=== PATIENT | female | born 1960 | race Caucasian/White ===

== ENCOUNTER 2020-06-03 09:16 | Day surgery (SDC) | payer BC ==
[2020-06-03] MEDS ORDERED: Xylocaine 1% Vial 30 ML PF IJ ONE (09:17)
[2020-06-03] MEDS ORDERED: Decadron 4 MG INJ IV ONE (09:17)
[2020-06-03] MEDS ORDERED: DIPRIVAN 200 MG/20 ML IV ONE (10:31)
[2020-06-03] MEDS ORDERED: Ketamine HCl 50 MG/ML ONE (10:31)
--- NOTE | 2020-06-03 11:31 | XRAY ---
Indication: Bilateral piriformis muscle injections. Intraoperative fluoroscopy was provided for 20 seconds. 2 digital spot images submitted for interpretation demonstrates posterior needle tips projecting over the expected left and right piriformis muscles. Small amount of contrast injected for both needle tip placement. Correlate with intraoperative findings/report.
--- NOTE | 2020-06-03 11:41 | XRAY ---
20 seconds fluoroscopy time in surgery for bilateral piriformis muscle injections.
[2020-06-03] MEDS ORDERED: Lactated Ringers 1,000 ML IV ONE (15:48)
== END 2020-06-03 10:58 | disposition home or self-care (01) ==
LOC: SDC-PAIN 09:16
PROVIDERS: ATTEND Psychiatry & Neurology Pain Medicine
DX: M79.18 Myalgia, other site (principal); G47.30 Sleep apnea, unspecified; F41.8 Other specified anxiety disorders; K21.9 Gastro-esophageal reflux disease without esophagitis; H93.19 Tinnitus, unspecified ear; M19.90 Unspecified osteoarthritis, unspecified site; Z79.899 Other long term (current) drug therapy
CPT/HCPCS: 72202; 77002; J1100; J2001; J2704; Q9966

== ENCOUNTER 2020-07-08 12:55 | Day surgery (SDC) | payer BC ==
[2020-07-08] MEDS ORDERED: LIDOCAINE HCL 2% 100 MG/5 ML IJ ONE (12:56)
[2020-07-08] MEDS ORDERED: BUPIVACAINE 0.5% VIAL IJ ONE (12:56)
[2020-07-08] MEDS ORDERED: Depo-Medrol 40 MG/ML IM ONE ×2 (12:56)
[2020-07-08] MEDS ORDERED: Lactated Ringers 1,000 ML IV ONE (14:27)
[2020-07-08] MEDS ORDERED: DIPRIVAN 200 MG/20 ML IV ONE (14:54)
[2020-07-08] MEDS ORDERED: Ketamine HCl 50 MG/ML ONE (14:55)
--- NOTE | 2020-07-08 16:27 | XRAY ---
Indication: Right SI joint injection. Intraoperative fluoroscopy was provided for 20 seconds. 2 digital spot images submitted for interpretation demonstrates posterior needle tip projecting over the inferior right SI joint. Correlate with intraoperative findings/report.
--- NOTE | 2020-07-08 16:31 | XRAY ---
20 seconds of fluoroscopy was used in surgery for a right SI joint injection.
== END 2020-07-08 15:20 | disposition home or self-care (01) ==
LOC: SDC-PAIN 12:55
PROVIDERS: ATTEND Psychiatry & Neurology Pain Medicine
DX: M46.1 Sacroiliitis, not elsewhere classified (principal); M79.7 Fibromyalgia; F41.8 Other specified anxiety disorders; G47.30 Sleep apnea, unspecified; Z79.899 Other long term (current) drug therapy
CPT/HCPCS: 27096; 72020; 77002; J1030; J2704; G0260

== ENCOUNTER 2020-08-12 09:42 | Day surgery (SDC) | payer BC ==
[~2020-08-12 09:42] MED LIST: DIPRIVAN 200 MG/20 ML IV ONE; Ketamine HCl 50 MG/ML ONE
[2020-08-12] MEDS ORDERED: Depo-Medrol 40 MG/ML IM ONE (09:43)
[2020-08-12] MEDS ORDERED: BUPIVACAINE 0.5% VIAL IJ ONE (09:43)
[2020-08-12] MEDS ORDERED: Decadron 4 MG INJ IV ONE (09:43)
[2020-08-12] MEDS ORDERED: Xylocaine 1% Vial 30 ML PF IJ ONE (09:43)
[2020-08-12] MEDS ORDERED: Lactated Ringers 1,000 ML IV ONE (13:53)
--- NOTE | 2020-08-13 14:55 | XRAY ---
9 seconds fluoroscopy time in surgery for right piriformis muscle injection.
--- NOTE | 2020-08-13 15:05 | XRAY ---
11 seconds fluoroscopy time in surgery for hip injection.
--- NOTE | 2020-08-15 22:34 | XRAY ---
Indication: Right hip joint injection. Intraoperative fluoroscopy was provided for 11 seconds. A single digital spot image submitted for interpretation in the prone position demonstrates the needle tip to be projected over the lateral margin of the right femoral neck. A small amount of contrast has been injected for needle tip placement. Correlate with intraoperative findings/report.
--- NOTE | 2020-08-15 22:42 | XRAY ---
Indication: Right piriformis muscle injection. Intraoperative fluoroscopy was provided for 9 seconds. A single digital prone spot image submitted for interpretation demonstrates the posterior spinal needle tip within the right hemipelvis just inferior lateral to the projection of the sacroiliac joint. A small contrast was injected for needle placement in the right piriformis muscle. Correlate with intraoperative findings/report.
== END 2020-08-12 11:45 | disposition home or self-care (01) ==
LOC: SDC-PAIN 09:42
PROVIDERS: ATTEND Psychiatry & Neurology Pain Medicine
DX: M16.11 Unilateral primary osteoarthritis, right hip (principal); M60.9 Myositis, unspecified; M25.551 Pain in right hip; M79.7 Fibromyalgia; F41.8 Other specified anxiety disorders; G47.30 Sleep apnea, unspecified; K21.9 Gastro-esophageal reflux disease without esophagitis; H93.19 Tinnitus, unspecified ear; Z79.899 Other long term (current) drug therapy
CPT/HCPCS: 20552; 20610; 72020; 73501; 77002; J1030; J1100; J2001; J2704; Q9966

== ENCOUNTER 2020-09-23 12:54 | Day surgery (SDC) | payer BC ==
[2020-09-23] MEDS ORDERED: Depo-Medrol 40 MG/ML IM ONE (12:55)
[2020-09-23] MEDS ORDERED: LIDOCAINE HCL 2% 100 MG/5 ML IJ ONE (12:55)
[2020-09-23] MEDS ORDERED: DIPRIVAN 200 MG/20 ML IV ONE (14:44)
[2020-09-23] MEDS ORDERED: Ketamine HCl 50 MG/ML ONE (14:44)
--- NOTE | 2020-09-23 15:18 | XRAY ---
Indication: Bilateral L4-S1 MBB. Intraoperative fluoroscopy was provided for 19 seconds. Single digital spot image submitted for interpretation demonstrates posterior needle tips projecting over the expected left and right L4-S1 nerve roots. Correlate with intraoperative findings/report.
--- NOTE | 2020-09-23 15:22 | XRAY ---
19 seconds fluoroscopy time in surgery for bilateral L4-S1 MBB.
[2020-09-23] MEDS ORDERED: Lactated Ringers 1,000 ML IV ONE (16:51)
== END 2020-09-23 15:12 | disposition home or self-care (01) ==
LOC: SDC-PAIN 12:54
PROVIDERS: ATTEND Psychiatry & Neurology Pain Medicine
DX: M47.816 Spondylosis without myelopathy or radiculopathy, lumbar region (principal); K21.9 Gastro-esophageal reflux disease without esophagitis; G47.30 Sleep apnea, unspecified; M79.7 Fibromyalgia; F41.8 Other specified anxiety disorders; Z79.899 Other long term (current) drug therapy
CPT/HCPCS: 64493; 64494; 72020; 77002; J1030; J2704

== ENCOUNTER 2020-09-29 09:16 | Day surgery (SDC) | payer BC ==
[~2020-09-29 09:16] MED LIST changes: +BUPIVACAINE 0.5% VIAL IJ ONE; -DIPRIVAN 200 MG/20 ML IV ONE; -Ketamine HCl 50 MG/ML ONE; +Lactated Ringers 1,000 ML IV ONE; +XYLOCAINE 1% HCL 20 ML MDV ONE
[2020-09-29] MEDS ORDERED: CEFAZOLIN 2 GM-D5W BAG** 2 GM/50 ML ML IV ONE (09:41)
[2020-09-29] MEDS ORDERED: Lactated Ringers 1,000 ML IV ONE ×2 (09:41→15:06)
[2020-09-29] MEDS ORDERED: Lactated Ringers 1,000 ML IV SCH (10:00)
[2020-09-29] MEDS ORDERED: CEFAZOLIN 2 GM-D5W BAG** 2 GM/50 ML ML IV SCH (10:00)
[2020-09-29] MEDS ORDERED: DIPRIVAN 200 MG/20 ML IV ONE ×4 (14:15→16:19)
[2020-09-29] MEDS ORDERED: Versed 2 MG/2 ML Injection ONE (14:15)
[2020-09-29] MEDS ORDERED: SUBLIMAZE 100 MCG/2 ML ONE (14:15)
--- NOTE | 2020-09-29 16:32 | XRAY ---
38 seconds fluoroscopy time in surgery for right foot bunionectomy.
--- NOTE | 2020-09-29 16:32 | XRAY ---
Indication: Bunion repair. Intraoperative fluoroscopy provided for 51 seconds. 2 digital spot images of right foot submitted for interpretation demonstrates distal 1st metatarsal bunionectomy with 2 orthopedic screws in situ. Correlate with intraoperative findings/report.
[2020-09-29 17:15] VITALS: O2SAT 97
[2020-09-29 17:22] VITALS: BP 132/67; PULSE 62
--- NOTE | 2020-09-30 10:03 | OP ---
SURGERY DATE: 09/29/2020 1452 PREOPERATIVE DIAGNOSIS: Hallux abductovalgus deformity right foot. POSTOPERATIVE DIAGNOSIS: Hallux abductovalgus deformity right foot. PROCEDURE: Bunionectomy with first metatarsal Lucrecia osteotomy right foot and Alvarez procedure. SURGEON: Alex Gutierres DPM. VICE PRESIDENT PRECISION MARKET INSIGHTS: None. ANESTHESIA: MAC plus local. ANTIBIOTICS: 1 gm Ancef preoperative. HEMOSTASIS: Right ankle tourniquet at 250 mm of Mercury for 67 minutes. ESTIMATED BLOOD LOSS: Less than 10 cc. MATERIALS: 2-0 Vicryl, 3-0 Nylon, 3-0 Monocryl and two cannulated 2.5 fully threaded headless compression screws. INJECTABLES: Preoperatively 30 cc of a 1:1 mixture of 0.5% Marcaine plain and 1% lidocaine plain. PATHOLOGY: None. MICROBIOLOGY: None. FINDINGS: See operative report. COMPLICATIONS: None. DESCRIPTION OF PROCEDURE AND FINDINGS: Following satisfactory preoperative evaluation, the patient was brought to the OR and placed on the OR table in supine position. At this time MAC sedation was administered by the anesthesia team. Following sedation a well-padded pneumatic ankle tourniquet was applied to the right ankle. At this time local anesthetic consisting of 30 cc of 0.5% Marcaine plain and 1% lidocaine plain was injected in a Tariq block-type fashion to the right foot. The foot was then prepped and draped in the typical sterile fashion and the right lower extremity was lowered onto the surgical field. At this time attention was directed to the right first metatarsal where approximately a 6 cm dorsal medial linear incision was made with a 15 blade. The incision was deepened through the subcutaneous layer by the 15 blade to expose the extensor tendon and the joint capsule. At this time the extensor hallucis brevis was identified and freed from its attachment at the first proximal phalanx base by a 15 blade. Attention was then directed to the first inner space where a lateral capsular release was performed. The lateral collateral ligament as well as conjoin tendon of the abductor hallucis was then released from their attachments by a 15 blade. At this time a linear incision was then made with 15 blade through the capsule dorsally and was reflected to expose the head of the first metatarsal and the base of the proximal phalanx. A sagittal saw was then utilized to resect the dorsal medial bony prominence of the metatarsal head and this was passed off the field. Attention was then directed to the medial aspect of the first metatarsal head where a Lucrecia-type osteotomy with a long dorsal arm was performed with its apex distally and this was performed utilizing a 31 mm sagittal saw. Following adequate osteotomy, the capital fragment was then shifted laterally by several millimeters to correspond with a more corrected position. This cut was made perpendicular to the second metatarsal access and attention was ensured to make sure there was no dorsiflexion of the capital fragment in the translation as well as with the saw cut. At this time the osteotomy was stabilized with 0.045 K-wire dorsal to plantar, two of them were used one distal and one proximal. At this time an over drill punch was utilized to over drill the dorsal cortex of the osteotomy site. At this time a 14 mm and a 16 mm 2.5 fully threaded headless compression screw was introduced into the fixation sites that were indicated by the placement of the K-wire. At this time there was noted to be good impaction and position of the fixation which was checked under fluoroscopic imaging. The excess medial edge of the bone was resected and smoothed utilizing the sagittal saw. At this point the surgical site was then flushed with sterile saline. A medial capsulorrhaphy was performed and the capsule was reapproximated utilizing 3-0 Monocryl. The subcutaneous tissue then approximated using 2-0 Vicryl and then the skin was coapted utilizing 3-0 Nylon in a horizontal mattress-type fashion. At this time the ankle tourniquet was deflated. Total tourniquet time was determined to be 67 minutes. At this time a dressing consisting of Betadine soaked, Adaptic, 4x4 gauze and Kerlix was placed on the right lower extremity. At this time a Fonseca-type compression dressing consisting of Webril, SHEELA, Webril and a posterior splint as applied to the right leg with the foot at 90 degrees respective to the long axis of the tibia and at this point was secured with an additional 4 inch and 6 inch SHEELA. The patient tolerated the anesthesia and the procedure well without incident and was transported into the recovery unit with vital signs stable and vascular status intact to the right foot. Orders for the following were written: 1) Nonweight bearing to the right foot. 2) Full weight bearing to the left foot with the assistance of crutches, walker or knee scooter. 3) Rest and elevate right foot. 4) Keep posterior splint and dressings clean, dry and intact. 5) Prescriptions for pain control, deep venous thrombosis prophylaxis and infection prophylaxis as dispensed. 6) Discharge per anesthesia.
== END 2020-09-29 17:30 | disposition home or self-care (01) ==
LOC: SDC 09:16
PROVIDERS: ATTEND Podiatrist Foot & Ankle Surgery
DX: M20.11 Hallux valgus (acquired), right foot (principal); M21.611 Bunion of right foot
CPT/HCPCS: 28295; 73620; 76000; J0690; J2250; J2704; J3010

== ENCOUNTER 2020-11-06 07:32 | Day surgery (SDC) | payer BC ==
[2020-11-06] MEDS ORDERED: Compazine 10 MG/2 ML IJ ONE (07:33)
[2020-11-06] MEDS ORDERED: Zofran 4 MG/2 ML VIAL IV ONE (07:33)
[2020-11-06] MEDS ORDERED: CEFAZOLIN 2 GM-D5W BAG** 2 GM/50 ML ML IV SCH (08:00)
[2020-11-06] MEDS ORDERED: Lactated Ringers 1,000 ML IV SCH (08:00)
[2020-11-06] MEDS ORDERED: Versed 2 MG/2 ML Injection IV ONE (08:38)
[2020-11-06] MEDS ORDERED: Transderm Scop 1.5MG Patch TOP ONE (08:56)
[2020-11-06] MEDS ORDERED: Transderm Scop 1.5MG Patch ONE (08:58)
[2020-11-06] MEDS ORDERED: Xylocaine-Mpf 2% 5 Ml Vial ONE (09:39)
[2020-11-06] MEDS ORDERED: SUBLIMAZE 100 MCG/2 ML ONE ×2 (09:39→11:17)
[2020-11-06] MEDS ORDERED: Zofran 4 MG/2 ML VIAL ONE (09:39)
[2020-11-06] MEDS ORDERED: DIPRIVAN 200 MG/20 ML IV ONE (09:39)
[2020-11-06] MEDS ORDERED: Decadron 4 MG INJ ONE (09:39)
[2020-11-06] MEDS ORDERED: TORAdol 30 mg Injection ONE (09:39)
[2020-11-06] MEDS ORDERED: DILAUDID 2 MG INJECTION ONE (12:02)
--- NOTE | 2020-11-06 12:28 | XRAY ---
Indication: Left foot arthrodesis. Intraoperative fluoroscopy was provided for 3 minutes 17 seconds. 4 digital spot images of the left foot demonstrates insertion of orthopedic plate/5 screws fixating 1st tarsometatarsal and 2nd cuneiform. Correlate with intraoperative findings/report.
--- NOTE | 2020-11-06 12:30 | XRAY ---
3 minutes and 17 seconds fluoroscopy time in surgery for arthrodesis left foot.
--- NOTE | 2020-11-06 15:00 | OP ---
SURGERY DATE/TIME: 11/06/2020 0952 INDICATION FOR SURGERY: The patient presented to my office in early August with consistent pain due to ambulation and shoe gear secondary to her hallux abductovalgus deformity. Because of the degree of deformity, she experienced at the medial eminence of the bunion with shoe gear. She requested that she had both bunions surgically operated on secondary to her consistent pain. She had tried multiple other modalities of treatment conservatively including shoes with a bigger toe box and physical therapy. However, she had no alleviation of the symptomatology that she is experiencing. It is for this she wanted to move forward with surgical intervention. She had already had the right lower extremity taken care of approximately five weeks ago and is full weight bearing to that extremity at this time. The patient wishes to proceed forward with surgical intervention at this time understanding all risks, benefits and complications of the surgical intervention. The patient understands potential complications including but not limited to delayed bone healing, nonbone healing, delayed wound healing, nonwound healing, possible failure of surgery and need for revisiting the OR for surgical intervention. It is with this we decide to proceed with surgical intervention at this time. PREOPERATIVE DIAGNOSES: 1) Hallux abductovalgus. 2) Hypermobility. 3) Pain left foot. POSTOPERATIVE DIAGNOSES: 1) Hallux abductovalgus. 2) Hypermobility. 3) Pain left foot. PROCEDURES: 1) Lapidus arthrodesis of fourth tarsometatarsal joint left foot. 2) Calcaneal autograft of the left calcaneus. 3) Lateral release. 4) Silver bunionectomy of the first metatarsal. SURGEON: Alex Gutierres DPM. MACHINE REBUILDER: None. ANESTHESIA: General plus local consisting of 30 cc of 0.5% Marcaine plain and 1% lidocaine plain in a 1:1 mixture. HEMOSTASIS: Thigh tourniquet set to 300 mm of Mercury for 120 minutes total tourniquet time. ESTIMATED BLOOD LOSS: Less than 30 cc. MATERIALS: [employer] LapiFuse plating system and screws, demineralized bone matrix with cancellous chips, 2-0 Vicryl and 3-0 Nylon. INJECTABLES: See anesthesia report. 1:1 mixture of 30 cc total of 0.5% Marcaine plain and 1% lidocaine plain injected into the left ankle in an ankle block-type fashion. DESCRIPTION OF PROCEDURE AND FINDINGS: After adequate anesthesia assessment, the patient was brought into the OR and placed on the OR table in supine position. The anesthesia team administered general anesthesia until the patient was sedated. The left lower extremity was lowered onto the surgical field at this time and a preoperative block consisting of 30 cc of 1:1 mixture of 0.5% Marcaine plain and 1% lidocaine plain was injected into the left ankle in an ankle block-type fashion. At this time a skin marker was utilized under fluoroscopy to identify the first tarsometatarsal joint where the center rotational angulation was identified at the bunion deformity. At this time the skin marker was utilized to draw a curvilinear lazy-S type incision over the dorsal aspect of the first tarsometatarsal joint just medial to the extensor hallucis longus tendon. At this time Esmarch was utilized to exsanguinate the left lower extremity and the tourniquet was inflated to 300 mm of Mercury. At this time attention was directed to the line that was drawn with the skin marker and an incision was made utilizing a 10 blade through the layer of the subcutaneous tissue. At this point a combination of blunt and sharp dissection was utilized to reach the first tarsometatarsal joint being careful not to violate any tendon or neurovascular structures along the way. Any of these structures that were identified were either cauterized or retracted out of the surgical field. At this time the first tarsometatarsal joint was identified and rongeurs utilized to remove the cartilaginous surfaces. A combination of curettes, osteotomes and chisels were utilized to remove the cartilage from both bases of these bones with resecting as little of the bone as possible. At this time copious amounts of sterile saline were utilized to flush the surgical site of any remaining cartilage. At this time a 2-0 mm drill was utilized fenestrate the joint surfaces and then osteotome was utilized to fenestrate the surfaces to increase the surface area for bone healing at this location. At this time a targeting guide was utilized to thread oblique screws down the medial aspect of the first metatarsal through the medial cuneiform and into the intermediate cuneiform cutting all three bones and creating compression. At this time a guide was applied to the first tarsometatarsal joint in order to assess the closing down of the IM12 angle as well as plantar flexion in the first ray in order to prevent a metatarsus primus elevatus. At this time this was secured and the IM2 angle as well as the sagittal plane alignment was checked under fluoroscopy and deemed to be adequate with a small dorsal gap at the distal aspect of the first tarsometatarsal joint. At this time a lateral release was performed and a Silver bunionectomy was performed being careful to remove the capsule and perform a left capsulorrhaphy following the resection of the medial eminence, this was again checked under fluoroscopy and deemed to be adequate. At this time [employer] LapiFuse plate was applied to the dorsal medial aspect of the first tarsometatarsal joint and two locking screws were placed proximally. An eccentric screw was utilized to gain compression of this joint and then the remaining screw holes were filled with locking screws. At this time all K-wires were removed from the surgical site and final fluoroscopic imaging was taken. Calcaneal autograft was obtained from the lateral aspect of the left calcaneus being careful to not violate any neurovascular structures along the way. A 10 blade was utilized to make a superficial skin incision and then bluntly dissected utilizing a blunt curved hemostat. 2-0 drill was used to penetrate the lateral wall of the calcaneus and various sizes of curettes were utilized to remove calcaneal autograft this was then packed into the dorsal aspect of the fusion site as well as a mixture of demineralized bone matrix with allograft cancellous chips filling all voids. At this time sterile saline was used superficially to flush the incision site being careful not to flush out any of the remaining autograft and the capsule was then closed in inverted L-type capsulotomy form. The tourniquet was then let down and 2-0 Vicryl was utilized to coapt the subcutaneous skin edges and 3-0 Nylon was utilized to coapt the skin in an everted-type fashion. At this time the percutaneous incision sites were also coapted utilizing 3-0 Nylon in an [id number] stitch in a simple-type fashion. The leg was cleansed with sterile saline and dried. Betadine paint was applied to the surgical sites and Adaptic was applied over the incision sites. 4x4's and then Kerlix were then applied as dry sterile dressing and then a well-padded posterior splint with sugar tong was applied to the left lower extremity holding the foot at 90 degrees. At this time the patient was reversed from anesthesia. The patient was then returned to the postoperative anesthesia care unit with vital signs stable and vascular status intact. The patient handled the procedure without complication. Postoperative orders as follows: 1) Keep postoperative dressing clean, dry and intact. Do not alter the dressing without consulting Dr. Alex hamm. Dressing is to remain dry throughout the postoperative course. 2) Elevate the operative extremity above the level of the heart to reduce inflammation. 3) Ice behind the knee to reduce inflammation. 4) Weight bearing status: Nonweight bearing to the left lower extremity at this time. Full weight bearing to the nonoperative extremity with the assistance of a knee scooter and/or crutches. The patient is status post hallux abductovalgus correction to the right lower extremity as well and is five weeks out. She was full weight bearing however. The patient is advised to continue her stretching exercises and cautious weight bearing with stable shoes with a good foot counter and a heel counter. 5) Postoperative pain control: Hydrocodone/acetaminophen 5/325 mg every four hours PRN for breakthrough pain, alternate with ibuprofen 600 mg every six hours PRN breakthrough pain. 6) Postoperative infection prophylaxis: Keflex 500 mg every six hours for ten days. 7) Postoperative deep venous thrombosis prophylaxis: Aspirin 325 mg p.o. daily until full weight bearing. 8) The patient is to follow up in one week of procedure. 9) Discharge the patient to home when all criteria is met.
[2020-11-06 15:58] VITALS: BP 137/74; PULSE 91; O2SAT 97
== END 2020-11-06 15:34 | disposition home or self-care (01) ==
LOC: SDC 07:32
PROVIDERS: ATTEND Podiatrist Foot & Ankle Surgery
DX: M20.12 Hallux valgus (acquired), left foot (principal); M21.612 Bunion of left foot; M79.672 Pain in left foot; Z79.899 Other long term (current) drug therapy
CPT/HCPCS: 20900; 28297; 73620; 76000; J0690; J1100; J1170; J1885; J2250; J2405; J2704; J3010; A9270-GY

== ENCOUNTER 2021-04-07 13:05 | Day surgery (SDC) | payer BC ==
[2021-04-07] MEDS ORDERED: Xylocaine 1% Vial 30 ML PF IJ ONE (13:06)
[2021-04-07] MEDS ORDERED: Depo-Medrol 40 MG/ML IM ONE (13:06)
[2021-04-07] MEDS ORDERED: BUPIVACAINE 0.5% VIAL IJ ONE (13:06)
[2021-04-07] MEDS ORDERED: Decadron 4 MG INJ IV ONE (13:06)
[2021-04-07] MEDS ORDERED: DIPRIVAN 200 MG/20 ML IV ONE (14:22)
--- NOTE | 2021-04-07 15:11 | XRAY ---
Indication: Right SI joint and piriformis injection. Intraoperative fluoroscopy provided for 23 seconds. 3 digital spot images submitted for interpretation demonstrates posterior needle tip projecting over the inferior right SI joint. Second needle tip projects over the expected right piriformis muscle with small amount of contrast injected for needle tip placement. Correlate with intraoperative findings/report.
--- NOTE | 2021-04-07 15:11 | XRAY ---
Indication: Left SI joint and left piriformis injection. Intraoperative fluoroscopy provided 21 seconds. 3 digital spot images submitted for interpretation demonstrates posterior needle tip projecting over the inferior left SI joint. Second needle tip projects over the expected left piriformis muscle with small amount of contrast injected for needle tip placement. Correlate with intraoperative findings/report.
--- NOTE | 2021-04-07 15:13 | XRAY ---
21 seconds fluoroscopy time in surgery for left SI joint and left piriformis muscle injections.
--- NOTE | 2021-04-07 15:13 | XRAY ---
23 seconds fluoroscopy time in surgery for right SI joint and right piriformis muscle injections.
[2021-04-07] MEDS ORDERED: Lactated Ringers 1,000 ML IV ONE (15:29)
== END 2021-04-07 14:50 | disposition home or self-care (01) ==
LOC: SDC-PAIN 13:05
PROVIDERS: ATTEND Psychiatry & Neurology Pain Medicine
DX: M46.1 Sacroiliitis, not elsewhere classified (principal); M79.18 Myalgia, other site; G47.30 Sleep apnea, unspecified; K21.9 Gastro-esophageal reflux disease without esophagitis; F41.8 Other specified anxiety disorders; Z79.899 Other long term (current) drug therapy
CPT/HCPCS: 20552; 27096; 72202; 77002; J1030; J1100; J2001; J2704; Q9966; G0260

== ENCOUNTER 2022-02-10 12:53 | Day surgery (SDC) | payer BC ==
[2022-02-10] MEDS ORDERED: Sodium Chloride 0.9(Preservative Free) 10 ML IJ ONE (12:54)
[2022-02-10] MEDS ORDERED: Xylocaine 1% Vial 30 ML PF IJ ONE (12:54)
[2022-02-10] MEDS ORDERED: Depo-Medrol 40 MG/ML IM ONE (12:54)
[2022-02-10] MEDS ORDERED: Decadron 4 MG INJ IV ONE (12:54)
[2022-02-10] MEDS ORDERED: BUPIVACAINE 0.5% VIAL IJ ONE (12:54)
[2022-02-10] MEDS ORDERED: DIPRIVAN 200 MG/20 ML IV ONE ×2 (14:46→14:53)
[2022-02-10] MEDS ORDERED: Lactated Ringers 1,000 ML IV ONE (14:56)
--- NOTE | 2022-02-10 16:35 | XRAY ---
Indication: Right L4-S1 transforaminal SHAAN. Intraoperative fluoroscopy provided for 22 seconds. 3 digital spot image submitted for interpretation demonstrates posterior needle tips projecting over the expected right L4 and L5 nerve roots. Small amount of contrast injected for needle tip placement. Correlate with intraoperative findings/report.
--- NOTE | 2022-02-10 16:37 | XRAY ---
Indication: Right greater trochanter bursa and right piriformis injections. Intraoperative fluoroscopy provided for 19 seconds. 2 digital spot image submitted for interpretation demonstrates needle tip projecting lateral to right greater trochanter. Second needle tip projects over the right piriformis muscle. Small amount of contrast injected for both needle tip placement. Correlate with intraoperative findings/report.
--- NOTE | 2022-02-10 16:40 | XRAY ---
19 seconds of fluoroscopy was used in surgery for a right greater trochanteric bursa and right piriformis muscle injection.
--- NOTE | 2022-02-10 16:40 | XRAY ---
22 seconds of fluoroscopy was used in surgery for a right L4-S1 transforaminal SHAAN.
== END 2022-02-10 15:12 | disposition home or self-care (01) ==
LOC: SDC-PAIN 12:53
PROVIDERS: ATTEND Psychiatry & Neurology Pain Medicine
DX: M54.16 Radiculopathy, lumbar region (principal); M70.61 Trochanteric bursitis, right hip; M79.18 Myalgia, other site; Z79.899 Other long term (current) drug therapy
CPT/HCPCS: 20552; 20610; 64483; 64484; 72100; 73502; 77002; 77003; J1030; J1100; J2001; J2704; Q9966

== ENCOUNTER 2023-06-28 15:46 | Day surgery (SDC) | payer BC ==
[2023-06-28] MEDS ORDERED: BUPIVACAINE 0.5% VIAL IJ ONE (15:47)
[2023-06-28] MEDS ORDERED: Depo-Medrol 40 MG/ML IM ONE (15:47)
[2023-06-28] MEDS ORDERED: Lactated Ringers 1,000 ML IV ONE (17:21)
[2023-06-28] MEDS ORDERED: DIPRIVAN 200 MG/20 ML IV ONE (17:48)
--- NOTE | 2023-06-28 19:13 | XRAY ---
Indication: Bilateral SI joint injection. Intraoperative fluoroscopy provided for 21 seconds. 4 digital spot images submitted for interpretation demonstrates posterior needle tip projecting over the left and right SI joint. Correlate with intraoperative findings/report.
--- NOTE | 2023-06-29 08:59 | XRAY ---
21 seconds of fluoroscopy was used in surgery for a bilateral sacroiliac joint injection.
== END 2023-06-28 18:13 | disposition home or self-care (01) ==
LOC: SDC-PAIN 15:46
PROVIDERS: ATTEND Psychiatry & Neurology Pain Medicine
DX: M46.1 Sacroiliitis, not elsewhere classified (principal); Z79.899 Other long term (current) drug therapy
CPT/HCPCS: 27096; 72202; 77002; J1030; J2704; G0260